=== PATIENT | male | born 1985 | race African-American/Black ===

== ENCOUNTER 2022-10-15 08:06 | Emergency (ER) | payer SELFPAY ==
[~2022-10-15] VITALS: Ht 195.6 cm; Wt 91.8 kg
[2022-10-15 08:45] VITALS: BP 143/93
[2022-10-15] MEDS ORDERED: DOXYCYCLINE HYCLATE 100MG CAPSULE PO ONE (08:45)
[2022-10-15] MEDS ORDERED: ACETAMINOPHEN 325MG TABLET PO ONE (08:45)
[2022-10-15] MEDS ORDERED: IBUPROFEN 400MG TABLET PO ONE (08:45)
[2022-10-15] MEDS ORDERED: TETANUS, DIPHTHERIA, PERTUSSIS VAC/PF 0.5ML (>10YR OLD) IM ONE (08:45)
[2022-10-15] MEDS ORDERED: CLINDAMYCIN HCL 150MG CAPSULE PO ONE (08:45)
[2022-10-15] MEDS ORDERED: DOXY100C5 MT (10:16)
[2022-10-15] MEDS ORDERED: CLIN-194 MT (10:16)
[2022-10-15] MEDS ORDERED: CLIN-116 MT (10:16)
[2022-10-15] MEDS ORDERED: ACET-2708 MT (10:16)
[2022-10-15] MEDS ORDERED: IBUP-2028 MT (10:16)
== END 2022-10-15 10:42 | disposition home or self-care (01) ==
LOC: ER 08:06
DX: S11.95XA Open bite of unspecified part of neck, initial encounter (principal); S41.151A Open bite of right upper arm, initial encounter; J44.9 Chronic obstructive pulmonary disease, unspecified; Z88.0 Allergy status to penicillin; W55.01XA Bitten by cat, initial encounter; Y93.89 Activity, other specified; Y92.89 Other specified places as the place of occurrence of the external cause; Y99.8 Other external cause status
CPT/HCPCS: 73060; 90471; 90715; 99284; Z7610